=== PATIENT | female | born 1980 | race Caucasian/White ===

== ENCOUNTER 2018-07-23 02:40 | Inpatient (IN) | payer BC ==
[2018-07-23] MEDS ORDERED: CITRIC ACID/SODIUM CITRATE 30 ML UDCUP PO ONE (03:29)
[2018-07-23] MEDS ORDERED: LR 500 ML IV ONE (03:29)
[2018-07-23] MEDS ORDERED: ceFAZolin 2 GM/DEXTROSE 100 ML IV ONE (03:29)
[2018-07-23] MEDS ORDERED: AZITHROMYCIN IV 500 MG in NS 250 ML IV ONE (03:32)
[2018-07-23 03:43] LABS: PLATELET COUNT 254 10^3/uL (150-400)
[2018-07-23] MEDS: LR 1,000 ML IV SCH ×2 (04:08→12:08)
[2018-07-23] MEDS ORDERED: MISOPROSTOL 200 MCG TAB ONE (05:54)
[2018-07-23] MEDS ORDERED: OXYTOCIN 10 UNIT/ML VIAL ONE (05:54)
[2018-07-23] MEDS ORDERED: AMMONIA AROMATIC 1 EACH AMP IH ONE (05:54)
--- NOTE | 2018-07-23 05:55 | GHP ---
[f rep st] PREOP HISTORY AND PHYSICAL DATE OF ADMISSION: 07/23/2018 SERVICE: Obstetrics. HISTORY UPON ADMISSION: The patient is a 37-year-old, G3, A2 at 37+ weeks' gestation, with an estima [place] due date of 08/11/2018, who had spontaneous rupture of membranes, approximately 2:15, with blood- tinged abundant leakage of fluid. The patient headed in quickly to the hospital, as she has a known position of persistent breech. Upon arrival, there was obvious rupture of membranes with generally c lear fluid but pink-tinged. The baby is palpably in a breech presentation. The patient is not contr acting at this time, but does occasionally have menstrual-type cramping. The patient has had good fe gab movement. Discussion with the patient and her about proceeding with a section. Risks and benefits discussed with the patient, and the consent form is signed. The patient had a Cl if Bar at 11:30, and as the patient is not actively enid now, then we will plan to put off charlie stacie for 8 hours from solid food to optimize lung safety for the patient. If she does kick into regu lar contractions, we will proceed with at that time. The patient and her are advis ed of that recommendation and agree. CARE: [facility] since 7 weeks' gestation. The patient has a history of anxiety and has had a therapist in the past, but not currently seeing one. The patient had a lot of anxiety in the first trimester, as she has had a history of a loss. The patient reports that anxi ety has not been a prominent issue for her more recently. Due to advanced maternal age of 37, the pa tient had her anatomy ultrasound with a specialist. Estimated weight at that time was the 40th percentile. There is an anterior placenta. The patient had a followup ultrasound in the third trim vinicio that continued to show good growth and normal fluid. The baby was in the breech position at th at time and has been persistent since then. The patient has been counseled about the option of versi on, and the patient was planning to schedule that 37 to 38 weeks. LABS: Include maternal blood type B positive with negative antibody screen. RPR nonreactiv e. Rubella immune. Hepatitis B surface antigen negative. HIV negative. Urinalysis and culture neg ative. Verifi genetic testing was negative with a negative MSAFP. Initial hematocrit 39.5, with dec rease to 36 in mid , but then improved to 39 again after increasing dietary iron. 1-hour Gl ucola was normal. The patient is immune to varicella and parvovirus. GBS culture was negative. The patient received Tdap vaccination on June 24. PAST MEDICAL HISTORY: The patient with above noted mild anxiety, has never been on medication for tr eatment, other than taking [id number] herbal approaches. Possible history of IBS. 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 The fathe r of baby has not been tested for those. PAST SURGICAL HISTORY: D and C in 2017. 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 PAST OBSTETRIC HISTORY: In 2003, termination of a in 1st trimester. In March 2017, D a nd C performed at 7 weeks' gestation due to a missed AB. ALLERGIES: The patient has no known drug allergies. CURRENT MEDICATIONS: vitamins. SOCIAL HISTORY: The patient is , lives with her , Juan. 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 The patient is a nonsmoker, only social alcohol when non, and no drug use. PHYSICAL EXAMINATION: GENERAL: Upon admission the patient is a well-developed, well-nourished, whit e female, in no discomfort, except for occasional mild cramping. VITAL SIGNS: The patient's vital s igns are within the normal ranges. The patient is afebrile. See nursing documentation for full deta ils. heart tones reveal a category 1 tracing with heart tones baseline in the 130s with good variability and accelerations. There are no decelerations noted. Mild uterine irritability, bu t no definitive contractions noted. The fetus is palpably in breech presentation. PELVIC: Exam is not performed, but there is abundant leakage of clear fluid that is pink-tinged. EXTREMITIES: Nonte nder, and no edema. ASSESSMENT: Intrauterine at 37+ weeks' gestation, spontaneous rupture of membranes, breech presentation. GBS culture was negative. PLAN: Wait 8 hours from solid intake, and then proceed with a primary low transverse sectio n. We will do preoperative antibiotics of azithromycin and Ancef. During surgery, we will better ev aluate the uterus for shape, as there was a question in 1st trimester of an arcuate versus septate sh ape of the uterus with gestation in the left horn. The patient is a carrier for congenital adrenal h yperplasia and glycogen metabolism abnormality. Maternal blood type B positive and rubella immune. Plan section after 8 hours, and surgery will be planned for approximately 7:30. Preoperativ e antibiotics and SCDs will be placed on the patient. /[id number]/MODL
[2018-07-23] MEDS ORDERED: morphINE PF 5 MG/10 ML INJ ONE (07:24)
[2018-07-23] MEDS ORDERED: BUPIVACAINE/DEXTROSE 7.5MG/ML 2 ML SPINAL AMP SP ONE (07:24)
[2018-07-23] MEDS ORDERED: OXYTOCIN 100 UNITS/10 ML VIAL ONE (07:25)
[2018-07-23] MEDS ORDERED: RANITIDINE 50 MG/2 ML VIAL ONE (07:25)
[2018-07-23] MEDS ORDERED: ONDANSETRON 4 MG/2 ML VIAL ONE (07:25)
[2018-07-23] MEDS ORDERED: CITRIC ACID/SODIUM CITRATE 30 ML UDCUP ONE (07:36)
--- NOTE | 2018-07-23 07:55 | PREANESOB ---
Obstetric Pre-Anesthesia Info - General Info Proposed Procedure: C/S NPO Start Time: 23:30 : 3 Para: 0 CORBY: 08/11/18 Gestational Age: 37 week(s) and 2 day(s) - Info Monitors: External FHR Pattern: Reassuring - Labor Status PIH: No Section History: Primary Indications for Current Section: Breech Labor Epidural: No Anesthesia Allergies/Adverse Reactions: Allergy/AdvReac Type Severity Reaction Status Date / Time No Known Allergies Allergy Unverified 03/29/17 08:39 Home Medications: Medication Instructions Recorded Ibuprofen [Motrin (*)] 600 mg PO Q6HRS PRN #30 tab 04/03/17 Visit Medications: Generic Name Dose Route Start Last Admin Trade Name Freq PRN Reason Stop Dose Admin Lactated Ringer's 1,000 mls @ 125 mls/hr 07/23/18 03:30 07/23/18 04:08 Lr IV 07/24/18 03:29 1,000 mls CONT COLBY Administration Discontinued Medications Generic Name Dose Route Start Last Admin Trade Name Freq PRN Reason Stop Dose Admin Ammonia (Aromatic Spirit) Confirm 07/23/18 05:54 Ammonia Aromatic Administered 07/23/18 05:55 Dose 1 each IH .STK-MED ONE Bupivacaine HCl/Dextrose Confirm 07/23/18 07:24 Marcaine Spinal Administered 07/23/18 07:25 Dose 2 ml SP .STK-MED ONE Citric Acid/Sodium Citrate 30 ml 07/23/18 03:29 Bicitra PO 07/23/18 03:30 ONCALL ONE Citric Acid/Sodium Citrate Confirm 07/23/18 07:36 Bicitra Administered 07/23/18 07:37 Dose 30 ml .ROUTE .STK-MED ONE Azithromycin 500 mg/ Sodium 255 mls @ 255 mls/hr 07/23/18 03:32 07/23/18 04: 08 Chloride IV 07/23/18 04:31 255 mls ONCE ONE Administration Protocol Cefazolin Sodium/Dextrose 100 mls @ 200 mls/hr 07/23/18 03:29 Ancef IV 07/23/18 03:58 ONCALL ONE Protocol Lactated Ringer's 500 mls @ 0 mls/hr 07/23/18 03:29 Lr IV 07/23/18 03:30 ONCE ONE As Directed Misoprostol Confirm 07/23/18 05:54 Cytotec Administered 07/23/18 05:55 Dose 1,000 mcg .ROUTE .STK-MED ONE Morphine Sulfate Confirm 07/23/18 07:24 Morphine Pf 5 Mg/10 Ml Administered 07/23/18 07:25 Dose 5 mg .ROUTE .STK-MED ONE Ondansetron HCl Confirm 07/23/18 07:25 Zofran Administered 07/23/18 07:26 Dose 4 mg .ROUTE .STK-MED ONE Oxytocin Confirm 07/23/18 05:54 Pitocin Administered 07/23/18 05:55 Dose 40 unit .ROUTE .STK-MED ONE Oxytocin Confirm 07/23/18 07:25 Pitocin Administered 07/23/18 07:26 Dose 100 units .ROUTE .STK-MED ONE Ranitidine HCl Confirm 07/23/18 07:25 Zantac Administered 07/23/18 07:26 Dose 50 mg .ROUTE .STK-MED ONE - Anesthesia History Response to Local Anesthetics: Not Applicable Anesthesia & Operative History: No Prior Problems Family Anesthesia History: Not Applicable - Social History Substance Use/Abuse: Denies - Vital Signs Latest Vital Signs (Nursing): Temp Pulse Resp BP Pulse Ox 36.9 C 88 16 117/68 98 07/23/18 07:49 07/23/18 07:49 07/23/18 07:49 07/23/18 07:49 07/23/18 07:49 Height/Weight (Nursing): Height 154.94 cm Weight 64.41 kg - Focused Exam Neck exam: FROM Mallampati Score: Class 2 Mouth exam: normal dental/mouth exam Pulmonary: no respiratory distress Cardiovascular: regular rate and rhythym Labs: 07/23/18 03:15 Patient ABO/Rh B POSITIVE 07/23/18 03:15 - Plan Anesthetic Plan: spinal for C/S Consent Signed and on Chart: Yes Patient/Guardian Understands and Agrees to Plan: Yes
--- NOTE | 2018-07-23 07:55 | POSTANESTH ---
Post Anesthetic Evaluation Cardiovascular Status: Normal, Stable Respiratory Status: Normal, Stable Level of Consciousness/Mental Status: Can Participate in Eval, Alert and Oriented Pain Control: Adequate, Prn Tx Ordered Nausea/Vomiting Control: Adequate, Prn Tx Ordered Complications Possibly Related to Anesthesia: None Noted
--- NOTE | 2018-07-23 08:03 | OBDEL ---
Info Type: Primary Presentation at Delivery: Breech L&D Analgesia/Anesthesia Type: Spinal GBS+: No Intrapartum Medications: Generic Name Dose Route Start Last Admin Trade Name Freq PRN Reason Stop Dose Admin Lactated Ringer's 1,000 mls @ 125 mls/hr 07/23/18 03:30 07/23/18 04:08 Lr IV 07/24/18 03:29 1,000 mls CONT COLBY Administration Discontinued Medications Generic Name Dose Route Start Last Admin Trade Name Freq PRN Reason Stop Dose Admin Citric Acid/Sodium Citrate 30 ml 07/23/18 03:29 07/23/18 07:59 Bicitra PO 07/23/18 03:30 30 ml ONCALL ONE Administration Azithromycin 500 mg/ Sodium 255 mls @ 255 mls/hr 07/23/18 03:32 07/23/18 04: 08 Chloride IV 07/23/18 04:31 255 mls ONCE ONE Administration Protocol Cefazolin Sodium/Dextrose 100 mls @ 200 mls/hr 07/23/18 03:29 07/23/18 08:00 Ancef IV 07/23/18 03:58 100 mls ONCALL ONE Administration Protocol Lactated Ringer's 500 mls @ 0 mls/hr 07/23/18 03:29 07/23/18 08:01 Lr IV 07/23/18 03:30 500 mls ONCE ONE Administration As Directed Indications for Delivery: SROM (Breech) Operative Report - Delivery Pre-op Diagnoses: SROM, Breech, 37w2d Post-op Diagnoses: Same History of Prior Section: No Nulliparous Prior to Delivery: Yes Indications for Current Section: Breech Procedure: Unscheduled Surgeon: Marvin Martinez [employer] Superintendent: Zehra Gary (Estella Mijares CNM) Complications: None Findings: Vigorous baby boy, normal uterus, normal bilateral tubes and ovaries. Uterus appears structurally normal at the time of section, no obvious septum, bicornuate, arcuate morphology. IV Fluid (ml): 1,200 EBL: 700 Cord Gases: Not sent [place] Data CORBY: 08/11/18 Gestational Age: 37 week(s) and 2 day(s) Villanueva Delivery Date: 07/23/18 Delivery Time: 08:38 Sex of Infant: Male Shoulder Dystocia Time Head Delivered: 08:38 Time Body Delivered: 08:38 ICD10 Worksheet Patient Problems: Problems Problem Status Onset Breech Acute Rupture, membranes, premature Acute S/P primary low transverse Acute Missed Acute - ICD10 Problem Qualifiers (1) S/P primary low transverse (2) Rupture, membranes, premature Qualifiers: PROM onset of labor timing: onset of labor within 24 hours of rupture PROM gestational age: full term Qualified Code(s): O42.02 - Full-term premature rupture of membranes, onset of labor within 24 hours of rupture
--- NOTE | 2018-07-23 08:03 | SUROPNOTE ---
SEAN Operative Report - Surgery Date of Operation: 07/23/18 Surgeon: Marvin Martinez Loan Assistant: JIMMY Woods Laurie Rodenberg, CNM Anesthesiologist: Steve Hernandez Pre-op Diagnosis: SROM, Breech, 37wks EGA Post-op Diagnosis: Same Procedure: PLTCS Findings: Vigorous baby boy, Nomral uterus tubes and ovaries Inf/Abcess present in the surg proc area at time of surgery?: No EBL: 500-1000 (700cc) Total fluids administered: 1200cc Complications: None Specimen(s): None Technique: The patient was taken to the OR where spinal was placed and anesthesia found to be adequate. The patient was then positioned supine with a leftward tilt and a time-out was performed. She was given weight-based antibiotics prior to skin incision. The abdomen was prepped and draped in normal sterile fashion. A Pfannenstiel skin incision was made with the scalpel and carried down to the fascia. The fascia was incised in the midline and the incision extended bilaterally sharply with scissors. The fascia was dissected off of the underlying rectus muscles superiorly and inferiorly also sharply using scissors. The rectus were in the midline and the peritoneum identified and entered bluntly without issue. The peritoneal incision was extended and the bladder blade was then placed. The vesicouterine junction was identified but a bladder flap not created. A transverse incision was made with the scalpel in the lower uterine segment and extended with cephalad and caudad traction on the incision edges. The breech was encountered and easily elevated out of the pelvis and delivered atraumatically, followed by the legs, body and arms using traditional breech maneuvers. The nose and mouth were bulb suctioned. We did wait for > 60 seconds before clamping and cutting the cord and then the infant was handed to pediatric staff. Cord blood gases were not sent and the placenta was not sent to pathology. The uterus was then exteriorized and carefully wiped of all debris. The uterus was closed in two layers - the first layer was running with 180 0-vloc and the second a vertical imbricating layer using 0-vicryl. The gutters were cleared of all clots. The uterine incision was reinspected and found to be hemostatic. The uterus was then returned to the abdomen. The fascia was elevated and the rectus muscles and subcutaneous tissues were found to be hemostatic. The fascia was closed with a running 0-Vicryl - single suture. The subcutaneous tissues were irrigated and hemostasis obtained. The subcutaneous space was closed with interrupted sutures of 2-0 vicryl. The skin was closed with 4-0 vloc undyed and then covered with Medipore dressing. The patient tolerated the procedure and was taken to recovery in stable condition. Lap, needle, sponge, and instrument count were announced as correct times two. I was present and scrubbed for the entire case.
--- NOTE | 2018-07-23 08:03 | PDHPUP ---
History & Physical Update H&P update statement: This history and physical update is based on an assessment of the patient which was completed after admission or registration (within 24 hours), but prior to the surgery/procedure. H&P update: H&P reviewed & patient examined, no change in patient's condition since H&P completed
[2018-07-23] MEDS ORDERED: ONDANSETRON 4 MG/2 ML VIAL IVP PRN (08:31)
[2018-07-23] MEDS ORDERED: NALOXONE HCL 0.4 MG/ML INJ IVP PRN ×2 (08:31)
[2018-07-23] MEDS ORDERED: MEPERIDINE 25 MG/0.5 ML AMP IVP PRN (08:31)
[2018-07-23] MEDS ORDERED: PHENYLEPHRINE HCL 100 MCG/ML SYR IVP PRN (08:31)
[2018-07-23] MEDS ORDERED: METOCLOPRAMIDE 10 MG/2 ML VIAL IVP PRN (08:31)
[2018-07-23] MEDS ORDERED: LABETALOL HCL 5 MG/ML 20 ML MDV IVP PRN (08:31)
[2018-07-23] MEDS ORDERED: fentaNYL 100 MCG/2 ML INJ IVP PRN (08:31)
[2018-07-23] MEDS ORDERED: MAGNESIUM HYDROXIDE 30 ML UDCUP PO PRN (10:12)
[2018-07-23] MEDS ORDERED: PROMETHAZINE HCL 25 MG/ML INJ IVP PRN (10:12)
[2018-07-23] MEDS ORDERED: POLYETHYLENE GLYCOL 3350 17 GM PKT PO PRN (10:12)
[2018-07-23] MEDS ORDERED: SIMETHICONE 80 MG TAB CHEW PO PRN (10:12)
[2018-07-23] MEDS ORDERED: BISACODYL 10 MG SUPP PR PRN (10:12)
[2018-07-23] MEDS ORDERED: LACTULOSE 20 GM/30 ML UDCUP PO PRN (10:12)
[2018-07-23] MEDS ORDERED: KETOROLAC 30 MG/1 ML SDV ONE (10:29)
[2018-07-23] MEDS: KETOROLAC 30 MG/1 ML SDV IVP SCH ×3 (10:30→22:50)
[2018-07-23] MEDS: IBUPROFEN 600 MG TAB PO SCH ×3 (12:19→23:26)
[2018-07-23] MEDS: ACETAMINOPHEN 325 MG TAB PO SCH ×2 (12:19→22:45)
[2018-07-23] MEDS: SENNOSIDES/DOCUSATE SODIUM TAB PO SCH (23:27)
[2018-07-24] MEDS: ACETAMINOPHEN 325 MG TAB PO SCH ×4 (05:11→22:08)
[2018-07-24] MEDS: KETOROLAC 30 MG/1 ML SDV IVP SCH (05:12)
[2018-07-24] MEDS: IBUPROFEN 600 MG TAB PO SCH ×4 (06:33→22:08)
--- NOTE | 2018-07-24 10:24 | OBPP ---
Progress Note Assessment/Plan: Assessment: 37 y/o POD #1 s/p LTCS @ 37 weeks secondary to SROM and breech doing well. Plan: Start iron today. support. Encourage ambulation and pt may shower today. Routine POC. 07/24/18 10:23 Subjective/ Course: 07/24/18 10:21 Pt is doing well today. She has good pain control on just PO Ibuprofen and Tylenol. She is ambulating and voiding and has + flatus. Min lochia. Breast feeding is going well and baby is doing well. Objective: 07/24/18 05:28 Patient ABO/Rh B POSITIVE 07/23/18 03:15 Temp Pulse Resp BP Pulse Ox 37.0 C 77 14 94/58 L 93 07/24/18 08:00 07/24/18 08:00 07/24/18 08:00 07/24/18 08:00 07/24/18 08:00 Uterine Position/Fundal Height: Umbilicus -2 Uterine Tone: Firm Physical Exam - Physical Exam General Appearance: alert, no apparent distress Neck: non-tender, full range of motion, supple Respiratory: chest non-tender, lungs clear, normal breath sounds Cardiac/Chest: regular rate, rhythm Abdomen: normal bowel sounds, incision (c/d/i) Extremities: swelling (no), Aby's sign (neg)
[2018-07-24] MEDS: SENNOSIDES/DOCUSATE SODIUM TAB PO SCH ×2 (11:03→22:07)
--- NOTE | 2018-07-24 15:00 | PDPAINCON ---
Pain Management Consultation Patient referred by : Michelle - Subjective Pain is: low, well controlled Activity: able to ambulate - Objective Technique: spinal opioid Sensory and motor exam: block has resolved, no apparent ill effects Vital signs: stable - Assessment/Plan Assessment/Plan: pain well-controlled, continue current mgmt (POD 1 s/p C/S with IT morphine. Denies adverse effects. Ambulating well, tolerating PO, pain well controlled.)
[2018-07-24] MEDS: FERRO-SEQUELS 65 MG TAB.ER PO SCH (16:24)
[2018-07-25] MEDS: IBUPROFEN 600 MG TAB PO SCH ×4 (04:16→23:27)
[2018-07-25] MEDS: ACETAMINOPHEN 325 MG TAB PO SCH ×4 (04:16→23:26)
[2018-07-25] MEDS: SENNOSIDES/DOCUSATE SODIUM TAB PO SCH ×2 (10:47→23:26)
[2018-07-25] MEDS: FERRO-SEQUELS 65 MG TAB.ER PO SCH (10:47)
--- NOTE | 2018-07-25 10:52 | OBPP ---
Progress Note Assessment/Plan: Assessment: 1) 37 y/o G1 now P1 s/p PCS secondary to breech and SROM at 37 2/7 wks POD #2 - pt is stable 2) Anemia - pt is asymptomatic Plan: Continue routine post-op care Encourage ambulation Cont iron and bowel protocol support prn Plan for d/c home in 24-48 hrs 07/25/18 10:51 Subjective/ Course: 07/24/18 10:21 Pt is doing well today. She has good pain control on just PO Ibuprofen and Tylenol. She is ambulating and voiding and has + flatus. Min lochia. Breast feeding is going well and baby is doing well. 07/25/18 10:51 Pt seen and examined. Doing well with no complaints. Pain is well controlled without any narcotics. Min lochia. She is OOB, amor regular diet, voiding without difficulty and passing flatus. No BM yet. Denies any f/c/n/v/CP or SOB. BF is going well, working with . Objective: 07/24/18 05:28 Patient ABO/Rh B POSITIVE 07/23/18 03:15 Temp Pulse Resp BP Pulse Ox 36.8 C 73 15 96/63 L 95 07/25/18 08:00 07/25/18 08:00 07/25/18 08:00 07/25/18 08:00 07/25/18 08:00 Uterine Position/Fundal Height: Umbilicus -2 Uterine Tone: Firm Physical Exam - Physical Exam General Appearance: WD/WN, alert, no apparent distress Respiratory: lungs clear, normal breath sounds Cardiac/Chest: regular rate, rhythm Abdomen: normal bowel sounds, non-tender, soft, flatus (+), incision (C/D/I, well approximated) Extremities: non-tender, normal inspection Skin: normal color, warm/dry Neuro/Psych: alert, normal mood/affect, oriented x 3
[2018-07-25 19:47] VITALS: BP 106/52
[2018-07-26] MEDS: ACETAMINOPHEN 325 MG TAB PO SCH ×3 (03:45→11:48)
[2018-07-26] MEDS: IBUPROFEN 600 MG TAB PO SCH ×2 (05:45→11:48)
[2018-07-26] MEDS: SENNOSIDES/DOCUSATE SODIUM TAB PO SCH (08:22)
[2018-07-26] MEDS: FERRO-SEQUELS 65 MG TAB.ER PO SCH (08:22)
--- NOTE | 2018-07-26 10:16 | OBPP ---
Progress Note Assessment/Plan: Assessment: 37 POD#3 s/p primary C/S for breech at 37w2d in setting of SROM. Doing great. Plan: DC home. Std postop instructions reviewed, including ssx pp depression. Daphney Culver MD, FACOG 07/26/18 10:48 Subjective/ Course: 07/24/18 10:21 Pt is doing well today. She has good pain control on just PO Ibuprofen and Tylenol. She is ambulating and voiding and has + flatus. Min lochia. Breast feeding is going well and baby is doing well. 07/25/18 10:51 Pt seen and examined. Doing well with no complaints. Pain is well controlled without any narcotics. Min lochia. She is OOB, amor regular diet, voiding without difficulty and passing flatus. No BM yet. Denies any f/c/n/v/CP or SOB. BF is going well, working with . 07/26/18 10:52 Pt doing well. Ambulating, voiding, amor reg diet and had BM, all without difficulty. Min lochia. Has not used narcotics yet. BF going well. Objective: 07/24/18 05:28 Patient ABO/Rh B POSITIVE 07/23/18 03:15 Temp Pulse Resp BP Pulse Ox 36.8 C 80 18 106/52 L 96 07/25/18 19:30 07/25/18 19:30 07/25/18 19:30 07/25/18 19:30 07/25/18 19:30 gen - pleasant, NAD CV - RRR chest - CTAB abd - soft, + BS, fundus firm at u-2, inc - c/d/I ext - BLE with trace edema, no calf tenderness Uterine Position/Fundal Height: Umbilicus -2 Uterine Tone: Firm
--- NOTE | 2018-07-26 11:06 | OBGCSDC ---
General Delivery Information - General Info : 3 Para: 1 Abortions: 2 Type: Primary L&D Analgesia/Anesthesia Type: Spinal Admission Date: 07/23/18 Labs: Patient ABO/Rh B POSITIVE 07/23/18 03:15 Hct 31.2 % (38.0-47.0) L 07/24/18 05:28 - Hospital Course : 07/24/18 10:21 Pt is doing well today. She has good pain control on just PO Ibuprofen and Tylenol. She is ambulating and voiding and has + flatus. Min lochia. Breast feeding is going well and baby is doing well. 07/25/18 10:51 Pt seen and examined. Doing well with no complaints. Pain is well controlled without any narcotics. Min lochia. She is OOB, amor regular diet, voiding without difficulty and passing flatus. No BM yet. Denies any f/c/n/v/CP or SOB. BF is going well, working with . 07/26/18 10:52 Pt doing well. Ambulating, voiding, amor reg diet and had BM, all without difficulty. Min lochia. Has not used narcotics yet. BF going well. - Delivery Providers Surgeon: Marvin Martinez Multicraft Operator: Zehra Gary (Estella Mijares CNM) - Delivery Indications for Current Section: Breech Surgical Procedures: Unscheduled Intra-op Complications: None EBL: 700 [place] Data CORBY: 08/11/18 Gestational Age: 37 week(s) and 5 day(s) Villanueva Delivery Date: 07/23/18 Delivery Time: 08:38 Sex of Infant: Male [place] Weight (gm): 3078 kg Score (1 Min): 8 Score (5 Min): 9 Discharge Information - Discharge Information Condition: Good Instruction/Follow Up: See Instruction Sheet, Two Weeks (incision check and meeting with [facility]), Six Weeks (full physical exam with a physician)
[2018-07-26] MEDS ORDERED: oxyCODONE IR 5 MG TAB PO PRN (11:21)
== END 2018-07-26 16:30 | disposition home or self-care (01) | DRG 788 ==
LOC: FLD 02:40 → OBSVTOIN 03:32 → FOB 11:10
PROVIDERS: ADMIT Obstetrics & Gynecology; ATTEND Obstetrics & Gynecology
PROC: 10D00Z1 Extraction of Products of Conception, Low, Open Approach (ICD-10-PCS; principal; 2018-07-23)
DX: O32.1XX0 Maternal care for breech presentation, not applicable or unspecified (principal); Z37.0 Single live birth; Z3A.37 37 weeks gestation of pregnancy; O99.03 Anemia complicating the puerperium; D64.9 Anemia, unspecified
CPT/HCPCS: J0456; J0690; J1885; J2274; J2405; J2550; J2590; J2780